=== PATIENT | female | born 1990 | race African-American/Black ===

== ENCOUNTER 2019-11-21 19:19 | Emergency (ER) | payer MEDICAID, OTHER ==
[~2019-11-21] VITALS: Ht 165.1 cm; Wt 63.5 kg
[2019-11-21 21:39] VITALS: BP 136/72
== END 2019-11-21 22:16 | disposition home or self-care (01) ==
LOC: ER 19:19
DX: H10.31 Unspecified acute conjunctivitis, right eye (principal)

== ENCOUNTER 2020-03-24 20:10 | Emergency (ER) | payer MEDICAID | END 2020-03-24 21:38 | disposition left against medical advice (07) | LOC: EDBD 20:10 → ER 20:20 | DX: T65.91XA Toxic effect of unspecified substance, accidental (unintentional), initial encounter (principal); Z53.21 Procedure and treatment not carried out due to patient leaving prior to being seen by health care provider ==